=== PATIENT | female | born 1930 ===

== ENCOUNTER → 2018-05-02 | Outpatient (REF) ==
[2018-05-02 09:39] LABS: ALBUMIN 3.4 gm/dL (3.5-5.0); BILIRUBIN,TOTAL 0.4 mg/dL (0.0-1.0); CALCIUM 9.1 mg/dL (8.4-10.2); CREATININE, serum 0.97 mg/dL (0.52-1.25); POTASSIUM 4.4 mmol/L (3.4-5.0); TOTAL PROTEIN 5.8 gm/dL (6.4-8.2)
== END ==
LOC: ZLAB.STJ 09:14
PROVIDERS: Internal Medicine
DX: Z01.89 Encounter for other specified special examinations (principal)

== ENCOUNTER → 2018-05-09 | Outpatient (REF) ==
[2018-05-09 16:37] LABS: COLLECTION METHOD CLEAN CATCH
[2018-05-09 16:53] LABS: MUCOUS Present /lpf; PH 5 (5-8); URINE APPEARANCE Hazy; URINE BACTERIA Many /hpf; URINE BILIRUBIN Negative (NEGATIVE); URINE BLOOD Negative (NEGATIVE); URINE COLOR Amber; URINE GLUCOSE Negative (NEGATIVE); URINE KETONE Negative (NEGATIVE); URINE LEUKOCYTE ESTERASE Negative (NEGATIVE); URINE NITRATE Positive (NEGATIVE); URINE PROTEIN(semi-quant) 1+ (NEGATIVE); URINE RBC 0-2 /hpf
== END ==
LOC: ZLAB.STJ 16:33
PROVIDERS: Nurse Practitioner
DX: Z01.89 Encounter for other specified special examinations (principal)